=== PATIENT | female | born 1950 | race Caucasian/White ===

== ENCOUNTER 2020-06-03 11:04 | Inpatient (IN) ==
[2020-06-03] MEDS ORDERED: MORPHINE 4 MG/1 ML VIAL IV STA (11:54)
[2020-06-03] MEDS ORDERED: ONDANSETRON 4 MG/2 ML VIAL IV STA (11:54)
[2020-06-03 12:29] LABS: Basophils # 0.1 10*3/uL (0.0-0.2); Basophils % 0.3 % (0.0-0.8); Eosinophils % 0.2 % (0.00-10.9); Hemoglobin 14.8 GM/DL (12.0-16.0); Immature Granulocytes % 0.5 %; Immature Granulocytes Absolute 0.09 #; Lymphocytes # 2.4 10*3/uL (1.4-4.0); Lymphocytes % 12.9 % (21.3-54.2); Mean Corpuscular HGB Conc 32.2 GM/DL (32-36); Mean Corpuscular Volume 92.4 FL (87-102); Mean Platelet Volume 9.2 FL (9.6-12.0); Monocytes % 5.9 % (1.7-12.7); Neutrophils % 80.2 % (38.7-73.9); Platelet Count 250 T/CUMM (130-400); Red Blood Count 4.98 MC/CUMM (3.8-5.5); Red Cell Distribution Width 13.2 % (9.3-17.3); White Blood Count 18.7 T/CUMM (4-12)
[2020-06-03 12:49] LABS: PT Patient Result 10.8 SECS (9.8-11.9); Partial Thromboplastin Time 27.7 SECS (23.9-33.8)
[2020-06-03 12:53] LABS: Albumin 3.6 G/DL (3.4-5.0); Bilirubin,Total 0.8 MG/DL (0.2-1.0); Calcium 9.5 MG/DL (8.5-10.1); Osmolality,Calculated 279.5 MOS/KG (273-304); Total Protein 7.7 G/DL (6.4-8.3)
[2020-06-03] MEDS ORDERED: GLUCAGON 1 MG VIAL IM PRN (13:01)
[2020-06-03] MEDS ORDERED: DEXTROSE 50% 25 GM/50 ML VIAL IV PRN (13:01)
[2020-06-03] MEDS: SODIUM CHLORIDE 0.9% 1,000 ML IV SCH (15:51)
[2020-06-03] MEDS: MORPHINE 4 MG/1 ML VIAL IV PRN ×3 (15:55→22:19)
[2020-06-03 17:47] LABS: Apearance,Urine CLEAR (Clear); Bilirubin,Urine Negative (Negative); Blood, Urine Negative (Negative); Glucose,Urine (UA) Negative (Negative); Ketones,Urine Negative (Negative); Mucus,Urine Occasional /LPF (Occasional); Nitrite,Urine Negative (Negative); Protein,Urine Negative; RBC,Urine 2 /HPF (0-4); Urine Color Yellow (Yellow); Urine Specific Gravity 1.017 (1.001-1.035); Urine Urobilinogen < 2.0 EU/DL (0.2-1.0); WBC,Urine 2 /HPF (0-6)
[2020-06-03] MEDS ORDERED: LEVOFLOXACIN INJ 500 MG in PREMIX 1 EACH IV SCH (19:00)
[2020-06-04] MEDS: MORPHINE 4 MG/1 ML VIAL IV PRN ×4 (01:28→21:16)
[2020-06-04] MEDS: SODIUM CHLORIDE 0.9% 1,000 ML IV SCH ×2 (05:14→19:42)
[2020-06-04 05:53] LABS: Basophils % 0.2 % (0.0-0.8); Eosinophils % 0.3 % (0.00-10.9); Hematocrit 38.5 VOL% (35.7-47.0); Hemoglobin 12.5 GM/DL (12.0-16.0); Immature Granulocytes % 0.3 %; Immature Granulocytes Absolute 0.03 #; Lymphocytes # 2.8 10*3/uL (1.4-4.0); Lymphocytes % 27.9 % (21.3-54.2); Mean Corpuscular HGB Conc 32.5 GM/DL (32-36); Mean Corpuscular Volume 90.8 FL (87-102); Mean Platelet Volume 9.9 FL (9.6-12.0); Monocytes % 11.6 % (1.7-12.7); Neutrophils % 59.7 % (38.7-73.9); Platelet Count 213 T/CUMM (130-400); Red Blood Count 4.24 MC/CUMM (3.8-5.5); Red Cell Distribution Width 13.2 % (9.3-17.3)
[2020-06-04 06:16] LABS: Calcium 8.3 MG/DL (8.5-10.1); Osmolality,Calculated 274.8 MOS/KG (273-304)
[2020-06-04] MEDS ORDERED: ceFAZolin 2,000 MG in PREMIX 1 EACH IV ONE (06:42)
[2020-06-04] MEDS ORDERED: BACITRACIN OINT 0.9 GM PACK TOP ONE (09:39)
[2020-06-04] MEDS ORDERED: BUPIVACAINE MPF 0.25% 30 ML VIAL ONE (10:36)
[2020-06-04] MEDS ORDERED: MORPHINE 4 MG/1 ML VIAL IV PRN (13:10)
[2020-06-04] MEDS ORDERED: diphenhydrAMINE CAP 25 MG CAPSULE PO PRN (13:10)
[2020-06-04] MEDS ORDERED: MAGNESIUM HYDROXIDE SUSP 30 ML UDCUP PO PRN (13:10)
[2020-06-04] MEDS ORDERED: ONDANSETRON 4 MG/2 ML VIAL IV PRN ×2 (13:10→13:29)
[2020-06-04] MEDS ORDERED: MEPERIDINE 25 MG/1 ML VIAL IV PRN (13:29)
[2020-06-04] MEDS ORDERED: propofoL 200 MG/20 ML VIAL IV ONE (13:32)
[2020-06-04] MEDS ORDERED: DEXAMETHASONE 4 MG/1 ML VIAL ONE (13:33)
[2020-06-04] MEDS ORDERED: ONDANSETRON 4 MG/2 ML VIAL ONE (13:33)
[2020-06-04] MEDS ORDERED: LIDOCAINE 2% 5 ML VIAL ONE (13:33)
[2020-06-04] MEDS ORDERED: fentaNYL 100 MCG/2 ML VIAL ONE (13:33)
[2020-06-04] MEDS ORDERED: MIDAZOLAM 2 MG/2 ML VIAL ONE (13:33)
[2020-06-04] MEDS ORDERED: TRANEXAMIC ACID 1,000 MG/10 ML VIAL ONE (13:33)
[2020-06-04] MEDS ORDERED: SEVOFLURANE 1 UNIT/15 MINUTE INH ONE (13:33)
[2020-06-04] MEDS ORDERED: GLYCOPYRROLATE 0.4 MG/2 ML VIAL ONE (13:34)
[2020-06-04] MEDS ORDERED: PHENYLEPHRINE 1 MG/10 ML SYRINGE IV ONE (13:34)
[2020-06-04] MEDS ORDERED: SUCCINYLCHOLINE 200 MG/10 ML VIAL ONE (13:34)
[2020-06-04] MEDS ORDERED: ROCURONIUM 100 MG/10 ML VIAL IV ONE (13:34)
[2020-06-04] MEDS ORDERED: NEOSTIGMINE 10 MG/10 ML VIAL ONE (13:34)
[2020-06-04] MEDS: HYDROmorphone 2 MG/1 ML VIAL IV PRN ×5 (13:35→17:38)
[2020-06-04] MEDS: LACTATED RINGERS 1,000 ML IV SCH ×2 (13:50→22:03)
[2020-06-04] MEDS: ceFAZolin 2,000 MG in PREMIX 1 EACH IV SCH (17:48)
[2020-06-04] MEDS: FLECAINIDE 50 MG TABLET PO SCH (21:17)
[2020-06-04] MEDS: MAGNESIUM CHLORIDE 64 MG TABLET PO SCH (21:17)
[2020-06-04] MEDS: CHOLECALCIFEROL 1,000 UNIT TABLET PO SCH (21:17)
[2020-06-04] MEDS: DOCUSATE SODIUM 100 MG CAPSULE PO SCH (21:17)
[2020-06-04] MEDS: CALCIUM (CARBONATE) 600 MG TABLET PO SCH (21:17)
[2020-06-04] MEDS: APIXABAN 2.5 MG TABLET PO SCH (21:17)
[2020-06-04] MEDS: METOPROLOL TARTRATE 50 MG TABLET PO SCH (21:18)
[2020-06-05] MEDS: ceFAZolin 2,000 MG in PREMIX 1 EACH IV SCH (01:49)
[2020-06-05] MEDS: LACTATED RINGERS 1,000 ML IV SCH (04:16)
[2020-06-05 05:36] LABS: Basophils % 0.2 % (0.0-0.8); Eosinophils % 0.3 % (0.00-10.9); Hematocrit 34.1 VOL% (35.7-47.0); Hemoglobin 11.2 GM/DL (12.0-16.0); Immature Granulocytes % 0.3 %; Immature Granulocytes Absolute 0.04 #; Lymphocytes # 2.7 10*3/uL (1.4-4.0); Mean Corpuscular HGB Conc 32.8 GM/DL (32-36); Mean Corpuscular Volume 91.2 FL (87-102); Mean Platelet Volume 9.8 FL (9.6-12.0); Monocytes % 12.1 % (1.7-12.7); Neutrophils % 64.1 % (38.7-73.9); Platelet Count 185 T/CUMM (130-400); Red Blood Count 3.74 MC/CUMM (3.8-5.5); Red Cell Distribution Width 13.2 % (9.3-17.3); White Blood Count 11.6 T/CUMM (4-12)
[2020-06-05 05:51] LABS: Calcium 8.3 MG/DL (8.5-10.1); Osmolality,Calculated 273.8 MOS/KG (273-304)
[2020-06-05 06:09] LABS: Calcium 8.4 MG/DL (8.5-10.1); Osmolality,Calculated 273.8 MOS/KG (273-304)
[2020-06-05] MEDS: TRIAMTERENE/HCTZ 37.5-25 MG TABLET PO SCH (09:13)
[2020-06-05] MEDS: CALCIUM (CARBONATE) 600 MG TABLET PO SCH ×2 (09:14→21:05)
[2020-06-05] MEDS: APIXABAN 2.5 MG TABLET PO SCH (09:14)
[2020-06-05] MEDS: MAGNESIUM CHLORIDE 64 MG TABLET PO SCH ×2 (09:14→21:04)
[2020-06-05] MEDS: CHOLECALCIFEROL 1,000 UNIT TABLET PO SCH ×2 (09:14→21:04)
[2020-06-05] MEDS: DOCUSATE SODIUM 100 MG CAPSULE PO SCH ×2 (09:14→21:06)
[2020-06-05] MEDS: FLECAINIDE 50 MG TABLET PO SCH ×2 (09:14→21:05)
[2020-06-05] MEDS: METOPROLOL TARTRATE 50 MG TABLET PO SCH ×2 (09:15→21:06)
[2020-06-05] MEDS: APIXABAN 5 MG TABLET PO SCH (21:06)
[2020-06-06 06:32] LABS: Basophils % 0.3 % (0.0-0.8); Eosinophils # 0.1 10*3/uL (0.0-0.87); Eosinophils % 1.2 % (0.00-10.9); Hematocrit 33.1 VOL% (35.7-47.0); Hemoglobin 10.7 GM/DL (12.0-16.0); Immature Granulocytes % 0.4 %; Immature Granulocytes Absolute 0.04 #; Lymphocytes # 2.7 10*3/uL (1.4-4.0); Mean Corpuscular HGB Conc 32.3 GM/DL (32-36); Mean Corpuscular Volume 92.7 FL (87-102); Mean Platelet Volume 9.7 FL (9.6-12.0); Monocytes % 13.1 % (1.7-12.7); Platelet Count 193 T/CUMM (130-400); Red Blood Count 3.57 MC/CUMM (3.8-5.5); Red Cell Distribution Width 13.1 % (9.3-17.3); White Blood Count 10.6 T/CUMM (4-12)
[2020-06-06 06:58] LABS: Calcium 8.8 MG/DL (8.5-10.1); Osmolality,Calculated 275.7 MOS/KG (273-304)
[2020-06-06] MEDS: MAGNESIUM CHLORIDE 64 MG TABLET PO SCH (09:12)
[2020-06-06] MEDS: CHOLECALCIFEROL 1,000 UNIT TABLET PO SCH (09:12)
[2020-06-06] MEDS: TRIAMTERENE/HCTZ 37.5-25 MG TABLET PO SCH (09:13)
[2020-06-06] MEDS: DOCUSATE SODIUM 100 MG CAPSULE PO SCH (09:13)
[2020-06-06] MEDS: METOPROLOL TARTRATE 50 MG TABLET PO SCH (09:13)
[2020-06-06] MEDS: CALCIUM (CARBONATE) 600 MG TABLET PO SCH (09:13)
[2020-06-06] MEDS: FLECAINIDE 50 MG TABLET PO SCH (09:13)
[2020-06-06] MEDS: APIXABAN 5 MG TABLET PO SCH (09:13)
[2020-06-06 11:35] VITALS: BP 116/49
== END 2020-06-06 14:30 | DRG 481 ==
LOC: EDUNIT# → EDBD → N.ED 11:04 → SUATTDRO 13:01 → N.EDINP 13:01 → N.3E 15:13
PROVIDERS: ADMIT Hospitalist; ATTEND Internal Medicine